=== PATIENT | female | born 1980 | race Caucasian/White ===

== ENCOUNTER 2021-05-23 12:11 | Emergency (ER) | payer OTHER ==
[~2021-05-23] VITALS: Ht 177.8 cm; Wt 80.0 kg
[2021-05-23] MEDS ORDERED: ONDANSETRON PF 4 MG/2 ML VIAL. IVP ONE ×2 (15:00→17:15)
[2021-05-23] MEDS ORDERED: IV NORMAL SALINE 1000ML BAG 1,000 ML IV ONE ×2 (15:00→17:15)
[2021-05-23] MEDS ORDERED: chlordiazePOXIDE HCL 25 MG CAPSULE PO ONE (17:15)
[2021-05-23] MEDS ORDERED: ONDA4TAB12 PO (17:30)
[2021-05-23] MEDS ORDERED: CHLO25CA9 PO (17:30)
--- NOTE | 2021-05-23 17:32 | ED.ADGEN ---
Past Medical History Past Surgical History: Other Additional Past Surgical Histo: Sinus Surgery Smoking Status: Current Every Day Smoker Alcohol Use: Heavy General Adult EDM: Chief Complaint: WITHDRAWL HPI: HPI: Patient is a 41-year-old female who presents to the emergency room from [facility] for the beginning of alcohol withdrawal. Patient was picked up yesterday and sent to [facility] by police. Patient has been drinking up to a liter a day. She states that she does want to get sober. She has been having nausea, vomiting, anxiety over the last several hours. She has never been through significant withdrawal previously. She states typically she weans herself off of alcohol but that she does not want to start drinking again. Patient denies any other complaints. Review of Systems: Review of Systems: Complete ROS is negative unless otherwise documented in HPI Current Medications: Current Medications Medications (Trade) Dose Ordered Sig/Yojana Start Time Stop Time Status Last Admin Dose Admin Chlordiazepoxide (Librium) 50 mg 1X ONCE 05/23/21 17:15 05/23/21 17:18 DC 05/23/21 18:28 50 MG Ondansetron HCl (Zofran) 4 mg 1X ONCE 05/23/21 17:15 05/23/21 17:18 DC 05/23/21 18:29 4 MG Sodium Chloride 1,000 ml @ 1,000 mls/hr 1X ONCE 05/23/21 17:15 05/23/21 18:14 DC 05/23/21 18:25 1,000 MLS/HR Allergies: Allergies: Allergies Coded Allergies Type Severity Reaction Last Updated Verified No Known Drug Allergies 05/23/21 No Physical Exam: PE: General: Awake, alert, NAD. Well Nourished, well hydrated. Cooperative HEENT: Atraumatic, EOMI, PERRL, airway patent, moist oral mucosa Neck: Supple, trachea midline Respiratory: CTA bilaterally, normal effort, no wheezing/crackles CV: RRR, no murmur, cap refill <2 GI: Soft, nondistended, nontender, no masses MSK: No obvious deformities Skin: Warm, dry, intact Neuro: A&O x3, speech NL, sensory and motor grossly intact, no focal deficits Psych: Normal affect, normal mood, not suicidal or homicidal Current Patient Data: Vital Signs: Vital Signs Date Time Temp Pulse Resp B/P (MAP) Pulse Ox O2 Delivery O2 Flow Rate FiO2 05/23/21 18:11 65 18 133/79 (97) 99 Room Air 05/23/21 14:15 97.7 97.7 EKG: EKG: [] Heart Score: C/O Chest Pain: N/A Risk Factors: Risk Factors: DM, Current or recent (<one month) smoker, HTN, HLP, family history of CAD, obesity. Risk Scores: Score 0 - 3: 2.5% MACE over next 6 weeks - Discharge Home Score 4 - 6: 20.3% MACE over next 6 weeks - Admit for Clinical Observation Score 7 - 10: 72.7% MACE over next 6 weeks - Early Invasive Strategies Radiology/Procedures: Radiology/Procedures: [] Course & Med Decision Making: Course & Med Decision Making Pertinent Labs and Imaging studies reviewed. (See chart for details) Patient is a 41-year-old female who presents to the emergency room complaining of nausea, vomiting, anxiety, body aches consistent with alcohol withdrawal. Patient was given Librium, fluids, Zofran with improvement in symptoms. Patient has a bed at [facility] and will be discharged there with a Librium taper. At this time patient does not have any signs or symptoms of DTs. She has never had al cohol withdrawal seizures. She is stable for outpatient treatment. Patient's test results and vitals while in the ED were fully reviewed and discussed with the patient. Patient is stable and at this time does not need admission to the hospital. We have discussed strict return precautions and the importance of following up with their Primary Care Physician. Patient stated understanding and was given an opportunity to ask any questions. Patient is in agreement with plan. Rosa Disclaimer: Rosa Disclaimer: This electronic medical record was generated, in whole or in part, using a voice recognition dictation system. Departure Departure Impression: Primary Impression: Alcohol withdrawal Disposition: HOME / SELF CARE / HOMELESS Condition: STABLE Referrals: JUDE LAMB PA-C (PCP) Patient Instructions: Alcohol Withdrawal Scripts Ondansetron (ONDANSETRON ODT) 4 Mg Tab.rapdis 1 TAB PO PRN Q6-8HRS, #16 TAB Prov: FABRICE ENG MD 05/23/21 Chlordiazepoxide Hcl (CHLORDIAZEPOXIDE HCL) 25 Mg Capsule 25 MG PO UD for 4 Days, #25 CAP Day 1: Take 50mg every 6 hours Day 2: Take 25mg every 6 hours Day 3: Take 24mg every 12 hours Day 4: Take 25mg at night Prov: FABRICE ENG MD 05/23/21 FABRICE ENG MD May 23, 2021 17:32
[2021-05-23 18:11] VITALS: BP 133/79
== END 2021-05-23 19:40 | disposition home or self-care (01) ==
LOC: ER 12:11
DX: F10.239 Alcohol dependence with withdrawal, unspecified (principal); R11.2 Nausea with vomiting, unspecified; F41.9 Anxiety disorder, unspecified; F17.200 Nicotine dependence, unspecified, uncomplicated; Y90.9 Presence of alcohol in blood, level not specified
CPT/HCPCS: 96361; 96374; 96376; 99285; J2405; J7030